=== PATIENT | male | born 1975 | race Two or more races ===

== ENCOUNTER 2024-10-09 17:44 | Emergency (ER) | payer MEDICAID, OTHER ==
[~2024-10-09] VITALS: Ht 170.2 cm; Wt 93.9 kg
[2024-10-09 18:34] VITALS: BP 126/78; PULSE 93; RESP 22; O2SAT 99
--- NOTE | 2024-10-09 19:08 | DVH ---
CHEST RADIOGRAPH Indication: cough Technique: Frontal and lateral view of the chest was obtained Comparison: None FINDINGS: Lines and Tubes: None Lungs: Mild congestion. Left lower lobe airspace opacity. Pleura: No effusion. No pneumothorax. Cardiomediastinal contours: Unremarkable Bones: Unremarkable IMPRESSION: Mild congestion. Left lower lobe airspace opacity.
[2024-10-09 19:29] LABS: Anion Gap 10 (5-15); Carbon Dioxide 24 mmol/L (20-31); Chloride 100 mmol/L (98-107); Potassium 4.5 mmol/L (3.5-5.1)
[2024-10-09 19:30] LABS: Calcium 9.9 mg/dL (8.7-10.4)
[2024-10-09 19:34] LABS: Basophils # (auto) 0 10 ^3/uL (0-0.2); Basophils % (auto) 0.5 % (0.0-2.0); Eosinophils # (auto) 0 10 ^3/uL (0-0.8); Eosinophils % (auto) 0.2 % (0.0-7.0); Hematocrit 49.2 % (41.0-53.0); Hemoglobin 16.7 g/dL (13.5-17.5); Lymphocytes # (auto) 0.4 10 ^3/uL (0.4-5.4); Lymphocytes % (auto) 4.2 % (10.0-50.0); Mean Corpuscular Hemoglobin 29.8 pg (28.0-32.0); Mean Corpuscular Hgb Conc. 33.8 g/dL (32.0-36.0); Mean Corpuscular Volume 88.1 fL (80.0-100.0); Monocytes % (auto) 9.6 % (0.0-12.0); Neutrophils # (auto) 8.8 10 ^3/uL (1.6-8.6); Neutrophils % (auto) 85.5 % (37.0-80.0); Platelet Count (auto) 275 10^3/uL (140-450); Red Blood Cells 5.59 10^6/uL (4.5-5.90); White Blood Cell 10.3 10^3/uL (4.4-10.8)
[2024-10-09 19:35] LABS: Blood Urea Nitrogen 16 mg/dL (9-23)
--- NOTE | 2024-10-09 19:45 | ED.PDOC ---
History of Present Illness HPI Comments 49 y/o M presents with flu-like symptoms, today. Patient endorses on having symptoms, that include shortness of breath, cough, diaphoresis, nausea, and generalized bodyaches, for the past 2x days following initial unprovoked onset. He comments further on being sent from an urgent care facility after being seen, earlier, today, due to also having a temperature of 101.0F. Patient states on DayQuil medication use, with no improvement or relief of symptoms. He reports no recent sick contact, travel, or other relevant or pertinent information. Patient denies having any chest pain, vomiting, abdominal pain, chills, urinary symptoms, or other associated symptoms or modifiers at this time. Chief Complaint: Flu like Time Seen by MD: 18:45 Reviewed Notes: Nurses Notes, Medications, Allergies Information Source: Patient Mode of Arrival: Ambulatory Severity: Moderate Timing: Hours Duration: Since onset Prehospital treatment: None Past Medical History Past Medical History (Other): obesity Surgical History (Other): left-eye Sx Family History Family History: Unknown Social History Smoker: Non-Smoker Alcohol: Denies ETOH Use Drugs: Denies Drug Use Lives In: Home Constitutional: reports: diaphoresis Respiratory: reports: cough, shortness of breath Gastrointestinal: reports: nausea Musculoskeletal: reports: others (generalized bodyaches ) All Other Systems: Reviewed and Negative (negative unless otherwise stated above or in HPI) Physical Exam General Appearance: No Apparent Distress, Obese HEENT: Normal ENT Inspection, Pharynx Normal, TMs Normal, Other (congested) Neck: Full Range of Motion, Non-Tender, Normal, Normal Inspection Respiratory: Chest Non-Tender, Lungs Clear, No Accessory Muscle Use, No Res piratory Distress, Normal Breath Sounds Cardiovascular: No Edema, No JVD, No Murmur, No Gallop, Normal Peripheral Pulses, Tachycardia Breast Exam: Deferred Gastrointestinal: No Organomegaly, Non Tender, No Pulsatile Mass, Normal Bowel Sounds, Soft Genitalia: Deferred Pelvic: Deferred Rectal: Deferred Extremities: No calf tenderness, Normal capillary refill, Normal inspection, Normal range of motion, Non-tender, No pedal edema Musculoskeletal : Apperance: Normal Neurologic: Alert, hybrid derivatives trader II-XII nml as Tested, No Motor Deficits, Normal Affect, Normal Mood, No Sensory Deficits Cerebellar Function: Normal Reflexes: Normal Skin: Dry, Normal Color, Warm Lymphatic: No Adenopathy Was a procedure done? Was a procedure done?: No Differential Dx Considerations may include: viral syndrome, URI, pleural effusions, bronchitis, PNA, covid19, influenza X-Ray, Labs, Meds, VS Vital Signs Date Time Temp Pulse Resp B/P (MAP) Pulse Ox O2 Delivery O2 Flow Rate FiO2 10/09/24 18:34 100.0 93 22 126/78 (94) 99 Lab Test 10/09/24 20:00 10/09/24 19:08 Range/Units Influenza Type A Antigen Negative Negative Influenza Type B Antigen Positive Negative SARS-CoV-2 Antigen (Rapid) Negative NEGATIVE White Blood Count 10.3 4.4-10.8 10^3/uL Red Blood Count 5.59 4.5-5.90 10^6/uL Hemoglobin 16.7 13.5-17.5 g/dL Hematocrit 49.2 41.0-53.0 % Mean Corpuscular Volume 88.1 80.0-100.0 fL Mean Corpuscular Hemoglobin 29.8 28.0-32.0 pg Mean Corpuscular Hemoglobin Concent 33.8 32.0-36.0 g/dL Red Cell Distribution Width 15.0 H 11.8-14.3 % Platelet Count 275 140-450 10^3/uL Mean Platelet Volume 8.5 6.9-10.8 fL Neutrophils (%) (Auto) 85.5 H 37.0-80.0 % Lymphocytes (%) (Auto) 4.2 L 10.0-50.0 % Monocytes (%) (Auto) 9.6 0.0-12.0 % Eosinophils (%) (Auto) 0.2 0.0-7.0 % Basophils (%) (Auto) 0.5 0.0-2.0 % Neutrophils # (Auto) 8.8 H 1.6-8.6 10 ^3/uL Lymphocytes # (Auto) 0.4 0.4-5.4 10 ^3/uL Monocytes # (Auto) 1.0 0-1.3 10 ^3/uL Eosinophils # (Auto) 0 0-0.8 10 ^3/uL Basophils # (Auto) 0 0-0.2 10 ^3/uL Nucleated Red Blood Cells 0.0 % Sodium Level 134 L 136-145 mmol/L Potassium Level 4.5 3.5-5.1 mmol/L Chloride Level 100 98-107 mmol/L Carbon Dioxide Level 24 20-31 mmol/L Anion Gap 10 5-15 Blood Urea Nitrogen 16 9-23 mg/dL Creatinine 1.23 0.700-1.30 mg/dL Glomerular Filtration Rate Calc 72 >90 mL/min BUN/Creatinine Ratio 13.0 10.0-20.0 Serum Glucose 108 H 74-106 mg/dL Calcium Level 9.9 8.7-10.4 mg/dL [place] [id number] Ph: [phone] DIAGNOSTIC IMAGING Diagnostic Imaging Report : [id number] Signed PATIENT: HUMERA ROSS ACCT: [id number] UNIT: [id number] : 1975 LOC: ER ROOM / BED: / AGE / SEX: 49 / M ADM STATUS: REG ER SERVICE 48 ORDERING PHYSICIAN: PATRICE KYLE MD PROCEDURE(s): CXR2 - CHEST TWO VIEWS ROUTINE REASON: cough ORDER NUMBER(s): [id number], ACCESSION NUMBER(s): [id number] CHEST RADIOGRAPH Indication: cough Technique: Frontal and lateral view of the chest was obtained Comparison: None FINDINGS: Lines and Tubes: None Lungs: Mild congestion. Left lower lobe airspace opacity. Pleura: No effusion. No pneumothorax. Cardiomediastinal contours: Unremarkable Bones: Unremarkable IMPRESSION: Mild congestion. Left lower lobe airspace opacity. ATED BY: MATTY RAMON MD DICTATED DATE/TIME: 10/09/241902 SIGNED BY: MATTY RAMON MD SIGNED DATE/TIME: 10/09/241902 CC: Time of 1ST Reevaluation: 19:15 Reevaluation 1ST: Unchanged Patient Education/Counseling: Diagnosis, Treatment Family Education/Counseling: No Family Present Additional Information The following tests were ordered, and results were reviewed by me: CXR, CBC, BMP, covid19 and influenza antigen tests I reviewed and agreed with the following test results read by other providers: CXR I discussed treatment and results with medical personnel Departure 1 Departure Time of Disposition: 06:15 (Patient likely with viral syndrome. Patient tested positive flu B. Patient eloped from emergency department.) Impression: Primary Impression: Influenza B Additional Impression: Viral syndrome Disposition: LEFT AWOL/ELOPED Condition: Fair Critical Care Note Critical Care Time?: No Stability Stability form required: No Heart Score Heart Score: Heart Score Response (Comments) Value History N/A 0 EKG N/A 0 Age N/A 0 Risk Factors N/A 0 Troponin N/A 0 Total 0 I personally scribed for PATRICE KYLE MD ([email or web address]) on 10/09/24 at 19:45. Electronically submitted by Major Perrin ([email or web address]). I personally scribed for PATRICE KYLE MD ([email or web address]) on 10/09/24 at 20:19. Electronically submitted by Major Perrin ([email or web address]). PATRICE KYLE MD Oct 09, 2024 19:45
[2024-10-09] MEDS: ONDANSETRON HCL 4 MG/2 ML VIAL IV ONE (19:48)
[2024-10-09] MEDS: ACETAMINOPHEN 325 MG TAB PO ONE (19:48)
[2024-10-09] MEDS: FAMOTIDINE (10MG/ML) 2ML VL IV ONE (19:49)
[2024-10-09] MEDS: KETOROLAC TROMETH 30 MG/ML 1ML VIAL IV ONE (19:49)
[2024-10-09] MEDS: SODIUM CHLORIDE 0.9% 1,000 ML IV ONE (19:49)
[2024-10-09 19:52] LABS: Glucose 108 mg/dL (74-106); Sodium 134 mmol/L (136-145)
[2024-10-09 21:18] LABS: COVID19 ANTIGEN SOFIA FIA NEGATIVE (NEGATIVE)
[2024-10-09 21:23] LABS: Rapid Influenza A Negative (Negative); Rapid Influenza B Positive (Negative)
== END 2024-10-09 21:11 | disposition left against medical advice (07) ==
LOC: ER 17:44
DX: J10.1 Influenza due to other identified influenza virus with other respiratory manifestations (principal); Z98.890 Other specified postprocedural states; Z20.822 Contact with and (suspected) exposure to COVID-19
CPT/HCPCS: 36415; 71046; 80048; 85025; 87426; 87804; 96361; 96374; 96375; 99284; J1885; J2405; J3490; J7030

== ENCOUNTER 2024-10-12 18:53 | Emergency (ER) | payer MEDICAID ==
[~2024-10-12] VITALS: Ht 167.6 cm; Wt 95.0 kg
[2024-10-12 19:00] VITALS: BP 125/89; PULSE 74; RESP 15; O2SAT 99
[2024-10-12] MEDS ORDERED: HYDROcodone-ACET 5/325MG TAB PO ONE (19:00)
--- NOTE | 2024-10-12 19:18 | ECG ---
[facility] Test Date: 2024-10-12 Test Time: 18:52:41 Pat Name: HUMERA ROSS Department: ED Room: Gender: M Seaming Machine Operator: ALEX : 1975 Requested By: TY HENDERSON Order Number: [id number] Reading MD: Measurements Intervals [place] Rate: 72 P: 71 CT: 128 QRS: -67 QRSD: 92 T: 63 QT: 371 QTc: 406 Interpretive Statements Sinus rhythm LAD, consider left anterior fascicular block Please click the below link to view image of tracing.
--- NOTE | 2024-10-12 19:19 | DVH ---
EXAM: XY CHEST PORTABLE CLINICAL HISTORY: Chest pain TECHNIQUE: Single AP view of the chest WID: COMPARISON: None FINDINGS: Lines and tubes: None Chest: The heart size and pulmonary vasculature is within normal limits. Calcified plaque projects over the aortic arch. No pleural effusion, pneumothorax, or consolidation. Linear scarring or atelectasis in the lateral le ft lung base. The osseous structures are grossly intact. IMPRESSION: No acute cardiopulmonary abnormality.
[2024-10-12 19:38] LABS: Basophils # (auto) 0 10 ^3/uL (0-0.2); Basophils % (auto) 0.1 % (0.0-2.0); Eosinophils # (auto) 0 10 ^3/uL (0-0.8); Hematocrit 50.7 % (41.0-53.0); Hemoglobin 17.2 g/dL (13.5-17.5); Lymphocytes # (auto) 1.9 10 ^3/uL (0.4-5.4); Mean Corpuscular Hemoglobin 29.9 pg (28.0-32.0); Mean Corpuscular Hgb Conc. 33.9 g/dL (32.0-36.0); Mean Corpuscular Volume 88.1 fL (80.0-100.0); Monocytes # (auto) 0.7 10 ^3/uL (0-1.3); Monocytes % (auto) 8.4 % (0.0-12.0); Neutrophils # (auto) 6.3 10 ^3/uL (1.6-8.6); Neutrophils % (auto) 70.5 % (37.0-80.0); Nucleated Red Blood Cells % 0.2 %; Platelet Count (auto) 231 10^3/uL (140-450); Red Blood Cells 5.75 10^6/uL (4.5-5.90); Red Cell Distribution Width 15.2 % (11.8-14.3); White Blood Cell 8.9 10^3/uL (4.4-10.8)
[2024-10-12 19:47] LABS: Chloride 98 mmol/L (98-107); Potassium 4.3 mmol/L (3.5-5.1)
[2024-10-12 19:48] LABS: Anion Gap 10 (5-15); Calcium 9.5 mg/dL (8.7-10.4); Carbon Dioxide 25 mmol/L (20-31)
[2024-10-12 19:53] LABS: BUN/Creatinine Ratio 14.9 (10.0-20.0); Blood Urea Nitrogen 17 mg/dL (9-23)
--- NOTE | 2024-10-12 20:05 | ED.PDOC ---
SOB-HPI HPI Comments 49 y.o male presents to the ED via EMS for a chief complaint of a productive cough associated with body aches. Patient was diagnosed with pneumonia recently at [facility] and was placed on Azithromycin and Prednisone. Patient does not feel any relief and presents with a temperature of 99 F. SPO2 read 99% on room air. He denies any chills, nausea, vomiting, diarrhea, abdominal pain. Chief Complaint: Flu like Time Seen by MD: 19:00 Reviewed notes: Nurses Notes, Medications, Allergies Information Source: Patient Mode of Arrival: EMS Severity: Moderate Timing: Weeks (2) Duration: Since onset Context: At Rest PE Risk Factors: None History of: Recent URI, Recent Antibiotic Modifying Factors: Nothing Associated Signs and Symptoms: Cough, Chest Pain Quality: Aching Radiation: No Radiation Location: Substernal If cough with SOB: Productive Past Medical History PAST MEDICAL HISTORY: Denies Past Medical History (Other): PNA Surgical History: Denies all surgeries Family History Family History: Unknown Social History Smoker: Non-Smoker Alcohol: Denies ETOH Use Drugs: Denies Drug Use Lives In: Home Constitutional: denies: chills, diaphoresis, fatigue, fever, malaise, sweats, weakness, others EENTM: denies: blurred vision, double vision, ear bleeding, ear discharge, ear drainage, ear pain, ear ringing, eye pain, eye redness, hearing loss, mouth pain, mouth swelling, nasal discharge, nose bleeding, nose congestion, nose pain, photophobia, tearing, throat pain, throat swelling, voice changes, others Respiratory: reports: cough; denies: hemoptysis, orthopnea, SOB at rest, shortn ess of breath, SOB with excertion, stridor, wheezing, others Cardiovascular: reports: chest pain; denies: dizzy spells, diaphoresis, Dyspnea on exertion, edema, irregular heart beat, left arm pain, lightheadedness, palpitations, PND, syncope, others Gastrointestinal: denies: abdomen distended, abdominal pain, blood streaked bowels, constipated, diarrhea, dysphagia, difficulty swallowing, hematemesis, melena, nausea, poor appetite, poor fluid intake, rectal bleeding, rectal pain, vomiting, others Genitourinary: denies: burning, dysuria, flank pain, frequency, hematuria, incontinence, penile discharge, penile sore, pain, testicle pain, testicle swelling, urgency, others Neurological: reports: headache; denies: dizziness, fainting, left sided numbness, left sided weakness, numbness, paresthesia, pre-existing deficit, right sided numbness, right sided weakness, seizure, speech problems, tingling, tremors, weakness, others Musculoskeletal: reports: muscle pain; denies: back pain, gout, joint pain, joint swelling, muscle stiffness, neck pain, others Integumetry: denies: bruises, change in color, change in hair/nails, dryness, laceration, lesions, lumps, rash, wounds, others Allergic/Immunocompromised: denies: Difficulty Healing, Frequent Infections, Hives, Itching, others Hematologic/Lymphatic: denies: anemia, blood clots, easy bleeding, easy bruising, swollen glands, others Endocrine: denies: excessive hunger, excessive sweating, excessive thirst, excessive urination, flushing, intolerance to cold, intolerance to heat, unexplained weight gain, unexplained weight loss, others Psychiatric: denies: anxiety, bipolar disorder, depression, hopeless, panic disorder, schizophrenia, sleepless, suicidal, others All Other Systems: Reviewed and Negative Physical Exam General Appearance: Moderate Distress ([id number] distress due to chest pain concerns.), Normal HEENT: Normal ENT Inspection, Pharynx Normal, TMs Normal Neck: Full Range of Motion, Non-Tender, Normal, Normal Inspection Respiratory: Lungs Clear, No Accessory Muscle Use, No Respiratory Distress, Normal Breath Sounds, Other (Diffuse sternal tenderness to palpation throughout. No signs of trauma.) Cardiovascular: No Edema, No JVD, No Murmur, No Gallop, Normal Peripheral Pu lses, Regular Rate/Rhythm Breast Exam: Deferred Gastrointestinal: No Organomegaly, Non Tender, No Pulsatile Mass, Normal Bowel Sounds, Soft Genitalia: Deferred Pelvic: Deferred Rectal: Deferred Extremities: No calf tenderness, Normal capillary refill, Normal inspection, Normal range of motion, Non-tender, No pedal edema Musculoskeletal : Apperance: Normal Neurologic: Alert, No Motor Deficits, Normal Affect, Normal Mood, No Sensory Deficits Cerebellar Function: Normal Reflexes: Normal Skin: Dry, Normal Color, Warm Lymphatic: No Adenopathy Was a procedure done? Was a procedure done?: No Differential Dx Differential Diagnosis: Asthma, Bronchitis, Pneumonia, URI X-Ray, Labs, Meds, VS Vital Signs Date Time Temp Pulse Resp B/P (MAP) Pulse Ox O2 Delivery O2 Flow Rate FiO2 10/12/24 19:00 99.0 74 15 125/89 (101) 99 10/12/24 18:53 72 Lab Test 10/12/24 19:12 Range/Units White Blood Count 8.9 4.4-10.8 10^3/uL Red Blood Count 5.75 4.5-5.90 10^6/uL Hemoglobin 17.2 13.5-17.5 g/dL Hematocrit 50.7 41.0-53.0 % Mean Corpuscular Volume 88.1 80.0-100.0 fL Mean Corpuscular Hemoglobin 29.9 28.0-32.0 pg Mean Corpuscular Hemoglobin Concent 33.9 32.0-36.0 g/dL Red Cell Distribution Width 15.2 H 11.8-14.3 % Platelet Count 231 140-450 10^3/uL Mean Platelet Volume 8.5 6.9-10.8 fL Neutrophils (%) (Auto) 70.5 37.0-80.0 % Lymphocytes (%) (Auto) 21.0 10.0-50.0 % Monocytes (%) (Auto) 8.4 0.0-12.0 % Eosinophils (%) (Auto) 0.0 0.0-7.0 % Basophils (%) (Auto) 0.1 0.0-2.0 % Neutrophils # (Auto) 6.3 1.6-8.6 10 ^3/uL Lymphocytes # (Auto) 1.9 0.4-5.4 10 ^3/uL Monocytes # (Auto) 0.7 0-1.3 10 ^3/uL Eosinophils # (Auto) 0 0-0.8 10 ^3/uL Basophils # (Auto) 0 0-0.2 10 ^3/uL Nucleated Red Blood Cells 0.2 % Sodium Level 133 L 136-145 mmol/L Potassium Level 4.3 3.5-5.1 mmol/L Chloride Level 98 98-107 mmol/L Carbon Dioxide Level 25 20-31 mmol/L Anion Gap 10 5-15 Blood Urea Nitrogen 17 9-23 mg/dL Creatinine 1.14 0.700-1.30 mg/dL Glomerular Filtration Rate Calc 79 >90 mL/min BUN/Creatinine Ratio 14.9 10.0-20.0 Serum Glucose 109 H 74-106 mg/dL Calcium Level 9.5 8.7-10.4 mg/dL Troponin I High Sensitivity 14 </=54 ng/L X-Ray, Labs, Meds, VS Comment All studies performed the ED were evaluated by me personally. Laboratories studies were unremarkable for any acute systemic process. Chest x-ray is unremarkable for any signs of consolidation or intrapulmonary concerns. EKG was unremarkable for any acute cardiac concern. Nursing attempted to locate the patient multiple times for medication management, but it appears the patient has eloped from the facility. Time of 1ST Reevaluation: 22:44 Reevaluation 1ST: Unchanged Consultation: PCP Patient Education/Counseling: Diagnosis, Treatment, Prognosis Family Education/Counseling: Diagnosis, Treatment, No Family Present Departure 1 Departure Time of Disposition: 22:45 Impression: Primary Impression: Chest pain Disposition: 07 LEFT AWOL/ELOPED Condition: Stable Discharged With: Self Critical Care Note Critical Care Time?: No Stability Stability form required: No Heart Score Heart Score: Heart Score Response (Comments) Value History Slightly Suspicious 0 EKG Normal 0 Age 45-64 1 Risk Factors 1 or 2 risk factors 1 Troponin Normal limit 0 Total 2 I personally scribed for TY HENDERSON PAC ([email or web address]) on 10/12/24 at 20:05. Electronically submitted by Johanny Samuel ([employer]). I personally scribed for TY HENDERSON PAC ([employer]) on 10/12/24 at 20:06. Electronically submitted by Johanny Samuel ([employer]). TY HENDERSON PAC Oct 12, 2024 20:05
[2024-10-12 20:06] LABS: Glucose 109 mg/dL (74-106); Sodium 133 mmol/L (136-145)
== END 2024-10-12 22:30 | disposition left against medical advice (07) ==
LOC: EDBD 18:53 → EDUNIT# 18:53 → ER 18:59
DX: R07.9 Chest pain, unspecified (principal); R05.8 Other specified cough; M79.18 Myalgia, other site; Z98.890 Other specified postprocedural states
CPT/HCPCS: 36415; 71045; 80048; 84484; 85025; 93005